=== PATIENT | female | born 1980 | race Caucasian/White ===

== ENCOUNTER 2024-08-26 16:12 | Emergency (ER) | payer OTHER, MEDICAID, SELFPAY ==
[2024-08-26 16:22] VITALS: BP 119/76; PULSE 76; RESP 16; TEMP 36.7; O2SAT 97; BMI 45.1
[2024-08-26 20:57] VITALS: BP 121/78; PULSE 70; RESP 18; O2SAT 98
--- NOTE | 2024-08-26 21:21 | USR_ITS ---
PROCEDURE INFORMATION: Exam: US Right Breast Limited; Cellulitis or Abscess Evaluation Exam date and time: 08/26/2024 10:18 PM Age: 43 years old Clinical indication: Breast pain; Prior surgery; Surgery date: 1-6 months; Surgery type: Patient said she had this area within her right breast drained April of 2024. ; Additional info: Mass vs. Abscess TECHNIQUE: Imaging protocol: Right breast ultrasound. Exam limited to the quadrant(s) of clinical concern. Exam focused on the evaluation of cellulitis or abscess. Exam is an emergent request and a non-BIRADS study. COMPARISON: No relevant prior studies available. FINDINGS: Breast/Soft tissues: There is a heterogeneous focus of fluid within the area of concern in the right breast communicating with the subcutaneous fat and measuring 3.6 x 1.3 cm in size. This is avascular. Other findings: BI-RADS category 2 benign findings. US/US breast RT limited* [id number] IMPRESSION: Findings most compatible with a right breast abscess. Drainage and specimen analysis is recommended.
--- NOTE | 2024-08-26 21:21 | ED_ITS ---
HPI - General Adult General: Chief complaint: General Medical Stated complaint: knot under right breast Time Seen by Provider: 08/26/24 21:06 History of Present Illness: Patient presents with concerns regarding a complex breast mass that has been previously evaluated. Patient reports the mass has been persistent and required previous drainage procedures. The mass is located under the right nipple. Tonight's presentation was prompted by increased symptoms including warmth to touch and nausea. Patient denies fever. Previous medical intervention included drainage attempts, with minimal output noted. Patient reports being referred to [facility] with an appointment scheduled for September 19. Previous provider who initially managed the condition has reportedly left practice. Associated symptoms: Deny chest pain, dyspnea or rash Related Data Previous Rx's Medication Instructions Recorded cephalexin 500 mg capsule 500 mg PO Q8H 7 days #21 caps 08/26/24 naproxen 500 mg tablet 500 mg PO Q12H PRN pain #30 tabs 08/26/24 Allergies Allergy/AdvReac Type Severity Reaction Status Date / Time No Known Allergies Allergy Verified 08/26/24 16:27 Review of Systems Card: Denies: chest pain Resp: Denies: dyspnea Skin/Breast: Reports: erythema, skin tenderness, skin swelling, non-healing lesions, lesions and breast mass; Denies: rash REPLACED BY [facility] Female Reproductive History: Date of last menstrual period: 08/12/24 Physical Exam Const: COMMON NORMALS: no acute distress, patient oriented x3 and no limitations Chest: CHEST: Yes Symmetrical chest wall rise Resp: COMMON NORMALS: normal respiratory effort Neuro: COMMON NORMALS: patient oriented x3 Skin: LESIONS: lesion noted (Firm non-fluctuant lesion from 11 oclock to 2 oclock just above the nipple) Tender to palpation Course ED course: Ultrasound did not reveal drainable fluid collection. Discussed the diagnostic uncertainty of this breast mass and recommended strongly that she keep her scheduled follow-up for evaluation in the meantime over concerns of possible underlying infection will cover with antibiotics and anti-inflammatories return precautions follow-up instructions discussed. Vital Signs: Vital signs: Vital Signs Temperature 98.0 F 08/26/24 16:22 Pulse Rate 70 08/26/24 20:57 Respiratory Rate 18 08/26/24 20:57 Blood Pressure 121/78 08/26/24 20:57 Pulse Oximetry 98 08/26/24 20:57 Oxygen Delivery Me thod Room Air 08/26/24 16:22 MDM - General Adult Medical Decision Making 43-year-old female with chronic breast mass or lesion possibly malignant presents with concerns of possible super infection with bacteria and/or abscess. Will give an injection of Rocephin and obtain an ultrasound to see if this is amendable to incision and drainage. XR interpretation done by ED provider, pending radiology final review Discharge Plan Discharge Patient Disposition: Home Clinical Impression: Breast mass in female Condition: Stable Prescriptions: New cephalexin 500 mg capsule 500 mg PO Q8H 7 Days Qty: 21 0RF naproxen 500 mg tablet 500 mg PO Q12H PRN (Reason: pain) Qty: 30 0RF Discharge Orders: Discharge ED (Routine); Ordered 08/26/24 Ordered By: Tomas Corado Discharge Diet: Usual diet Discharge Activity: Resume usual activity Patient Instructions: Opioid Safety, Pain Management Coding Level of Care Code ED Gang Mower Operator for Delaney Gant
[2024-08-26] MEDS: cefTRIAXone 1,000 MG in water for injection-sterile 2.1 ML 2.1 MG IM (21:40)
== END 2024-08-26 22:52 | disposition home or self-care (01) ==
PROVIDERS: Emergency Provider Family Medicine
DX: N63.10 Unspecified lump in the right breast, unspecified quadrant (principal)
CPT/HCPCS: 76642; 96372; 99284; J0696

== ENCOUNTER 2024-09-06 11:36 | Inpatient (IN) | payer MEDICAID, SELFPAY ==
[2024-09-06] VITALS (11 sets, daily range): BP systolic 105–143; BP diastolic 66–96; PULSE 59–78; RESP 16–19; TEMP 36.6–36.9; O2SAT 92–98; BMI 47.1; BMI 46.2
--- NOTE | 2024-09-06 12:50 | US_ITS ---
WS: [id number] ULTRASOUND RIGHT BREAST HISTORY: pain/swelling/r/o infection abscess COMPARISON: 08/26/2024 TECHNIQUE: 2-D and Doppler. There is a large complex heterogeneous but predominately cystic mass in the retroareolar RIGHT breast. Mass measures 4.6 x 5.2 x 2.7 cm with increased peripheral vascularity. This mass was also present on the prior examination of 08/26/2024 but is increasing in size. US/US breast RT limited* [id number] IMPRESSION: BI-RADS: 3- Probably Benign FOLLOW-UP: See Report Increasing size of the complex fluid collection in the RIGHT breast is most con sistent with a large abscess. Consider surgical debridement. Recommend follow-u p to resolution.
--- NOTE | 2024-09-06 14:00 | W.ED.SKABFB ---
HPI - Skin/Abscess/Foreign Bdy General: Chief complaint: Skin/Abscess/Foreign Body Stated complaint: Mass rt breast Time Seen by Provider: 09/06/24 13:44 Source: patient Mode of arrival: ambulatory Limitations: no limitations History of Present Illness: Patient is a 43-year-old female presents to ED today for a red, tender, and exquisitely painful right breast. Patient states she has been having ongoing issues since March. She was seen here in our emergency department approximately 2 weeks ago and was placed on antibiotics for concern for a possible abscess. There was also some possible concern for underlying malignancy. Patient states she has an appointment with a cancer facility later this month in [place]. She states she has never had a mammogram. She is very tearful due to the amount of discomfort she is in. No family history of breast cancer but states her mom and sister both have a history of ovarian cancer diagnosed at a young age. She has never had a mammogram. No biopsy/pathology has been completed yet. complaint: abscess/boil Onset (ago): day(s) Tetanus up to date: yes Location: chest Severity: severe Severity scale (1-10): 10 Pain Consistency: constant Relieving factors: none Exacerbating factors: none Context: none Associated symptoms: Deny chills or fever(s) Treatments prior to arrival: none Related Data Previous Rx's ?Medication ?Instructions ?Recorded naproxen 500 mg tablet 500 mg PO Q12H PRN pain #30 tabs 08/26/24 Allergies Allergy/AdvReac Type Severity Reaction Status Date / Time No Known Allergies Allergy Verified 09/06/24 12:26 Review of Systems Const: Denies: fever(s), chills, body aches, fatigue or malaise Card: Denies: chest pain Resp: Denies: dyspnea Skin/Breast: Reports: erythema (R breast) Neuro: Denies: headache(s) Physical Exam Const: COMMON NORMALS: patient oriented x3, no limitations, alert and well nourished GENERAL APPEARANCE: cooperative and in distress (tearful due to fear and pain) NUTRITIONAL APPEARANCE: obese Chest: NIPPLE/AREOLA: No nipple discharge OTHER: pt has significant tenderness, induration, erythema, warmth mainly affecting the lower outer portion of her R breast; there is dimpling to her areola/nipple from underlying induration; no nipple discharge Resp: COMMON NORMALS: normal respiratory effort and clear to auscultation bilaterally AUSCULTATION: clear to auscultation bilaterally Cardio: COMMON NORMALS: regular rate and regular rhythm RATE: regular rate RHYTHM: regular rhythm Neuro: COMMON NORMALS: patient oriented x3 SENSORIUM/ORIENTATION: Yes alert Course Consultations: Consultation #1: Dr. Woods-recommending CT imaging with contrast; will admit to his service Vital Signs: Vital signs: Vital Signs Temperature 97.9 F 09/06/24 12:21 Pulse Rate 70 09/06/24 16:08 Respiratory Rate 16 09/06/24 16:08 Blood Pressure 131/93 09/06/24 16:08 Pulse Oximetry 98 09/06/24 16:08 Oxygen Delivery Me thod Room Air 09/06/24 12:21 MDM - Skin/Abscess/Foreign Bdy Medicial Decision Making Patient here with a worsening exquisitely tender and erythematous right breast. She was seen here a few weeks ago and placed on antibiotics with no response. Breast US was initially obtained from triage. Read was that she had an increasing size of the complex fluid collection most consistent with a large abscess with recommendations for consideration for surgical debridement. I had spoken to Dr. Woods who recommended CT imaging. CT scan showing a large mass in her anterior right breast with significant extension and overlying skin inflammation. DDx includes inflammatory breast cancer, Paget's, granulomatous mastitis, abscess. Patient clinically is in significant amounts of discomfort. Dr. Woods graciously is willing to consult on patient admit her to his services. He will discuss potential surgical options. He has requested IV antibiotics, prn pain/nausea meds, and making her NPO at midnight in preparation for surgery. Dr. Uribe aware of patient and will place admit orders. Medical Records I reviewed the patient's medical records. Lab Data I reviewed the patient's lab results. 09/06/24 14:13 09/06/24 14:13 Radiology Impressions Breast Ultrasound 09/06/24 12:50 IMPRESSION: BI-RADS: 3- Probably Benign FOLLOW-UP: See Report Increasing size of the complex fluid collection in the RIGHT breast is most consistent with a large abscess. Consider surgical debridement. Recommend follow-up to resolution. Chest CT 09/06/24 14:10 IMPRESSION: 1. Large mass in the anterior RIGHT breast with extension to involve the subareolar complex and skin. Mass measures 6.7 x 3.0 cm. With the extension of the overlying skin inflammatory breast cancer should also be considered along with Paget's disease. 2. The central retroareolar collection may be an abscess. Differential includes granulomatous mastitis, Paget's disease and inflammatory breast cancer. 3. Significant skin involvement. Punch biopsy of the skin may be of benefit if surgical debridement is not performed. 4. Mildly reactive RIGHT axillary lymph node measures 2.4 cm. Notified BILL Mills at 09/06/2024 3:02 PM. Laboratory Results WBC 14.71 10^3/uL (3.29-11.43) H 09/06/24 14:13 RBC 4.66 10^6/uL (3.85-5.65) 09/06/24 14:13 Hgb 12.40 g/dL (11.27-16.99) 09/06/24 14:13 Hct 39.3 % (36-47) 09/06/24 14:13 MCV 84.3 fl (85-98) L 09/06/24 14:13 MCH 26.6 pg (27-33) L 09/06/24 14:13 MCHC 31.6 g/dL (30-55) 09/06/24 14:13 RDW 13.0 % (12.1-15.1) 09/06/24 14:13 Plt Count 292 10^3/cmm (157-399) 09/06/24 14:13 MPV 10.9 fL (7.4-10.4) H 09/06/24 14:13 Neut % (Auto) 72.7 % 09/06/24 14:13 Lymph % (Auto) 20.9 % 09/06/24 14:13 Dickens % (Auto) 4.3 % 09/06/24 14:13 Eos % (Auto) 1.5 % 09/06/24 14:13 Baso % (Auto) 0.3 % 09/06/24 14:13 Neut # (Auto) 10.68 10^3/uL (1.8-7.7) H 09/06/24 14:13 Lymph # (Auto) 3.1 10^3/uL (0.8-4.8) 09/06/24 14:13 Dickens # (Auto) 0.6 10^3/uL (0.2-0.9) 09/06/24 14:13 Eos # (Auto) 0.2 10^3/uL (0.0-0.8) 09/06/24 14:13 Baso # (Auto) 0.1 10^3/uL (0.0-0.1) 09/06/24 14:13 Nucleated RBC % (auto) 0 % 09/06/24 14:13 Nucleated RBCs # 0.0 /100WBC 09/06/24 14:13 Sodium 135 mmol/L (136-145) L 09/06/24 14:13 Potassium 4.3 mmol/L (3.5-5.1) 09/06/24 14:13 Chloride 101 mmol/L (98-107) 09/06/24 14:13 Carbon Dioxide 25 mmol/L (22-29) 09/06/24 14:13 Anion Gap 13.3 (5-19) 09/06/24 14:13 BUN 9 mg/dL (6-20) 09/06/24 14:13 Creatinine 0.7 mg/dL (0.5-0.9) 09/06/24 14:13 GFR Calculation 91.3 mL/min (90-130) 09/06/24 14:13 Glucose 103 mg/dL (65-115) 09/06/24 14:13 Calculated Osmolality 279 mOsm/kg (285-295) L 09/06/24 14:13 Calcium 8.9 mg/dL (8.5-10.5) 09/06/24 14:13 Total Bilirubin 0.2 mg/dL (0.15-1.2) 09/06/24 14:13 AST 8 U/L (0-32) 09/06/24 14:13 ALT 7 U/L (0-33) 09/06/24 14:13 Alkaline Phosphatase 60 U/L (35-105) 09/06/24 14:13 Total Protein 7.0 g/dL (6.6-8.7) 09/06/24 14:13 Albumin 3.6 g/dL (3.5-5.2) 09/06/24 14:13 Globulin 3.4 g/dL (1.3-4.6) 09/06/24 14:13 All radiology interpretation(s) finalized by discharge Discharge Plan Discharge Patient Disposition: Admitted As Inpatient Clinical Impression: Large mass of right breast Condition: Stable Prescriptions: No Action naproxen 500 mg tablet 500 mg PO Q12H PRN (Reason: pain) Qty: 30 0RF Print Language: [place] Coding Level of Care Code ED Pulmonary Disease Specialist for Delaney Gant
[2024-09-06] MEDS: ondansetron 2 mg/ML SDV 2 mL 4 MG IVP ×3 (14:10→20:56)
--- NOTE | 2024-09-06 14:10 | CT_ITS ---
WS: [id number] CT chest w con* [id number] HISTORY: focus R breast abscess TECHNIQUE: CT is protocol to include the RIGHT breast and axilla only. Axial imaging performed through the RIGHT breast. Coronal and sagittal reformats are submitted. All CT scans at [facility] use at least one of these dose optimization techniques: automated exposure control; mA and/or kV adjustment per patient size (includes targeted exams where dose is matched to clinical indication); or iterative reconstruction. CONTRAST: Omnipaque 350; 100 mL IV. DLP: 590.18 mGy.cm COMPARISON: Prior ultrasound 09/06/2024 and 08/26/2024 Soft tissue mass is reidentified within the central, retroareolar RIGHT breast. This is a low-attenuation mass with peripheral enhancement and soft tissue extension. Mass measures 6.7 x 3.0 cm and extends over a length of 5.6 cm. Mass extends to the anterior breast and the subareolar complex. There is marked subcutaneous thickening measuring 6 mm. No air within the cavity. No additional abscess. There is a reactive mildly hyperemic lymph node. The largest lymph node is 2.4 cm. Visualized RIGHT lung is clear. CT/CT chest w con* [id number] IMPRESSION: 1. Large mass in the anterior RIGHT breast with extension to involve the subar eolar complex and skin. Mass measures 6.7 x 3.0 cm. With the extension of the o verlying skin inflammatory breast cancer should also be considered along with P aget's disease. 2. The central retroareolar collection may be an abscess. Differential include s granulomatous mastitis, Paget's disease and inflammatory breast cancer. 3. Significant skin involvement. Punch biopsy of the skin may be of benefit if surgical debridement is not performed. 4. Mildly reactive RIGHT axillary lymph node measures 2.4 cm. Notified BILL Mills at 09/06/2024 3:02 PM.
[2024-09-06] MEDS: morphine 4 mg/mL SDV 1 mL IVP ×3 (14:11→20:57)
[2024-09-06 14:24] LABS: Basophils # 0.1 10^3/uL (0.0-0.1); Basophils % 0.3 %; Eosinophils # 0.2 10^3/uL (0.0-0.8); Eosinophils % 1.5 %; Hematocrit 39.3 % (36-47); Lymphocytes # 3.1 10^3/uL (0.8-4.8); Lymphocytes % 20.9 %; Mean Corpuscular HGB Conc 31.6 g/dL (30-55); Mean Corpuscular Hemoglobin 26.6 pg (27-33); Mean Corpuscular Volume 84.3 fl (85-98); Mean Platelet Volume 10.9 fL (7.4-10.4); Monocytes # 0.6 10^3/uL (0.2-0.9); Monocytes % 4.3 %; Neutrophils # 10.68 10^3/uL (1.8-7.7); Neutrophils % 72.7 %; Nucleated Red Blood Cells % 0 %; Platelet Count 292 10^3/cmm (157-399); Red Blood Count 4.66 10^6/uL (3.85-5.65); White Blood Count 14.71 10^3/uL (3.29-11.43)
[2024-09-06] MEDS: iohexol 350 mg/mL 500 mL Btl (per mL) IV (14:35)
[2024-09-06 14:40] LABS: Alanine Aminotransferase 7 U/L (0-33); Albumin Level 3.6 g/dL (3.5-5.2); Alkaline Phosphatase 60 U/L (35-105); Anion Gap 13.3 (5-19); Aspartate Amino Transferase 8 U/L (0-32); Blood Urea Nitrogen 9 mg/dL (6-20); Calcium 8.9 mg/dL (8.5-10.5); Carbon Dioxide 25 mmol/L (22-29); Chloride 101 mmol/L (98-107); Creatinine Clr Calc Pharmacy 154.7338; Globulin 3.4 g/dL (1.3-4.6); Glomerular Filtration Rate 91.3 mL/min (90-130); Glucose 103 mg/dL (65-115); Osmolality Calculated 279 mOsm/kg (285-295); Potassium 4.3 mmol/L (3.5-5.1); Sodium 135 mmol/L (136-145); Total Bilirubin 0.2 mg/dL (0.15-1.2)
[2024-09-06] MEDS: piperacillin-tazobactam 3.375 GM in sodium chloride 0.9% (plus) 50 ML IV (16:20)
[2024-09-06] MEDS: vancomycin 1,500 MG/300 ML PIGGYBACK 200 MG IV (16:39)
--- NOTE | 2024-09-06 17:36 | PHA.VACGOAL ---
Vancomycin Goal - Goal Vancomycin Goal:: 10-15 mg/L Vancomycin Indication:: Other - Therapy Current therapy:: Pip/Tazo Day of therpy:: Day []of [] . Actual body weight (kg): 310 lb - Data Labs: WBC 14.71 10^3/uL (3.29-11.43) H 09/06/24 14:13 RBC 4.66 10^6/uL (3.85-5.65) 09/06/24 14:13 Hgb 12.40 g/dL (11.27-16.99) 09/06/24 14:13 Hct 39.3 % (36-47) 09/06/24 14:13 MCV 84.3 fl (85-98) L 09/06/24 14:13 MCH 26.6 pg (27-33) L 09/06/24 14:13 MCHC 31.6 g/dL (30-55) 09/06/24 14:13 RDW 13.0 % (12.1-15.1) 09/06/24 14:13 Sodium 135 mmol/L (136-145) L 09/06/24 14:13 Potassium 4.3 mmol/L (3.5-5.1) 09/06/24 14:13 Chloride 101 mmol/L (98-107) 09/06/24 14:13 Carbon Dioxide 25 mmol/L (22-29) 09/06/24 14:13 Anion Gap 13.3 (5-19) 09/06/24 14:13 BUN 9 mg/dL (6-20) 09/06/24 14:13 Creatinine 0.7 mg/dL (0.5-0.9) 09/06/24 14:13 GFR Calculation 91.3 mL/min (90-130) 09/06/24 14:13 Last dialysis session:: N/A Treatment plan:: new consult Regimen:: MAINTENANCE DOSE OF 1500 MG Q8H PER DOSING PROTOCOL Follow up:: WILL CONTINUE TO MONITOR AND FOLLOW UP DAILY
[2024-09-06] MEDS: lidocaine 2% viscous 15 ML, aluminum-mag hydrox-simethicon 30 ML, sucralfate oral liq 1 GM PO (20:56)
[2024-09-07] VITALS (11 sets, daily range): BP systolic 105–130; BP diastolic 63–80; PULSE 67–80; RESP 16–20; TEMP 36.7–37; O2SAT 90–96
[2024-09-07] MEDS: vancomycin 1,500 MG/300 ML PIGGYBACK 200 MG IV (00:07)
[2024-09-07] MEDS: morphine 4 mg/mL SDV 1 mL IVP ×4 (01:46→20:44)
[2024-09-07] MEDS: piperacillin-tazobactam 3.375 GM in sodium chloride 0.9% (plus) 50 ML IV ×3 (02:38→18:16)
[2024-09-07] MEDS: vancomycin 1,500 MG/300 ML PIGGYBACK 150 MG IV ×2 (07:23→16:22)
[2024-09-07] MEDS: ondansetron 2 mg/ML SDV 2 mL 4 MG IVP (07:23)
--- NOTE | 2024-09-07 08:58 | PC.CHAP ---
Pastoral Care Encounter/Spiritual Assessment Type of Contact [] Declined supervisor machine workers visit [] Patient/Family/Request visit [] Outpatient visit [] Follow-up visit [] Physician referral [] Code/Alert [] Routine visit [] Staff referral [] Actively dying [x] Patient sleeping [] Family support [] [] Out of room [] Palliative care [] [] Receiving care in room [] Pre-surgical visit [] Trauma [] Long length of stay [] ICU visit [] Other: Relational/Emotional Strength [] Patient feels connected with others/family/visitors/staff [] Distress [] Loneliness/isolation [] Abandonment Spirituality of Patient [] Person of Radha [] Attends Restoration of their Radha [] Believes in Prayer [] Reads Bible or Protestant materials [] There are Spiritual issues to be addressed Electronic Field Service Engineer Interventions [] Prayer [] Active listening [] Non-anxious presence [] Spiritual/emotional support [] Crisis/trauma care [] Spiritual counseling [] Bereavement support [] Provided bereavement packet [] Provided Bible/devotional materials [] Provided toy/stuffed animal, coloring book to patient or family member [] Provided Communion [] Anointing/Davilla [] Salvation [] Completed spiritual assessment [] Other: Impact on Illness or Injury [] Angry [] Fearful [] Anxious [] Often cries [] Exhaustion [] Unable to work [] Unable to attend anabaptism [] Unable to walk/stand [] Unable to read [] Unable to drive [] Unable to eat/drink [] Unable to sleep [] Unable to be with family [] Patient intubated [] Other: Summary Time spent with patient
--- NOTE | 2024-09-07 14:06 | P.HP_ITS ---
Providers/Chief Complaint 2 Admitting Physician: Clay Woods DO Chief Complaint: Mass rt breast History of Present Illness Chandu Morin is a 43 year old female, with an extensive family history of ovarian cancer in her mother and sister, presented to the hospital with worsening pain erythema and swelling of the right breast. She reports that this has been present since March. She has an appointment in 2 weeks with a breast surgeon in [place]. Her pain just became exquisite and she had to go to the emergency room. She has a 3 children and last breast-fed a year and a half ago. She denies any nipple discharge. She has never had a mammogram. Denies any family history of breast cancer. Right breast ultrasound performed in the ER was read as abscess. A CT of the right breast/chest showed a large mass with extensive skin/nipple involvement and a 2.4 cm lymph node in the right axilla. Review of Systems 2 General: Reports: 10 or more systems reviewed and unremarkable except in HPI and below Medications/Allergies Home Medications ?Medication ?Instructions ?Recorded ?Confirmed ?Last Taken ?Type naproxen 500 mg tablet 500 mg PO Q12H PRN pain #30 tabs 08/26/24 09/06/24 Unknown Rx Allergies Allergy/AdvReac Type Severity Reaction Status Date / Time No Known Allergies Allergy Verified 09/06/24 12:26 PFSH Acute 2 Female Reproductive History: Date of last menstrual period: 09/04/24 Vitals/I&O/Wt Last Vital Signs Temp 98.7 F 09/08/24 07:12 Pulse 64 09/08/24 07:12 Resp 15 09/08/24 07:12 BP 126/75 09/08/24 07:12 Pulse Ox 91 09/08/24 07:12 O2 Del Method Room Air 09/08/24 07:12 09/07/24 09/08/24 09/08/24 22:59 06:59 14:59 Intake Total 470 / 820 300 / 1120 350 / 350 Output Total 600 / 900 700 / 700 Balance 470 / 520 -300 / 220 -350 / -350 Weight last 48 hrs Weight 301 lb 12.8 oz Weight 302 lb Weight 303 lb 14.4 oz Weight 310 lb Physical Exam 2 Narrative: General : Patient is well developed , no acute distress, oriented x3 Head : Normal cephalic, a-traumatic. Ears : Pinnae and external canal are normal. Hearing is normal. Eyes : PERRLA, Sclera and injection are normal. No conjunctival discharge. Nose : Mucous membranes are without erythema. Throat : buccal mucosa is normal, gums are without significant recession or hypertrophy. Lungs : Equal chest rise bilaterally, no use of accessory muscles, trachea is midline. Cor : Rate and rhythm are normal. Breast: Right breast has extensive erythema surrounding the areola and is very tender to the touch with induration and an underlying palpable mass that is nonmobile. There is also a nonmobile large lymph node in the right axilla. No other masses felt bilaterally Abdomen : Soft, ND, NT, no g/r/m Extremities : No edema, no cyanosis or clubbing, dorsalis pedis pulses are present bilaterally, non-tender to palpation of calves. Upper extremities are normal bilaterally. Back : non-tender to palpation, no CVA tenderness. Neuro : CN II - XII intact, Upper and lower extremities have equal and full strength Data 09/06/24 14:13 09/06/24 14:13 Micro: Microbiology 09/06/24 16:11 Blood Culture - Preliminary Blood NEGATIVE TO DATE 09/06/24 16:14 Blood Culture - Preliminary Blood NEGATIVE TO DATE A&P Assessment and plan (1) Large mass of right breast: Plan Presentation is concerning for an inflammatory breast cancer. Also included in the differential is Paget's disease, granulomatous mastitis, mastitis versus other infection. Skin biopsy x 2 performed at the edge of the areola by myself with 4 mm punch biopsy after consent obtained. Procedure performed with patient's nurse, Karon, in the room. I will send her tomorrow for core needle biopsy of breast mass and right axillary mass by interventional radiology Patient likely will be discharged home tomorrow after the biopsies and I will order a CT of the chest abdomen pelvis along with a bone scan. She also needs bilateral mammograms and an oncology referral PDMP PDMP Reviewed: Not Reviewed Attestations 2 Medical Necessity Statement*: Patient requires at least 1 night in the hospital for further workup of this large painful right breast mass to include biopsies tomorrow. She also requires acute pain control Coding Level of Care Code Acute Code for Chg Fwd Diagnoses Large mass of right breast N63.10
--- NOTE | 2024-09-07 14:19 | PC.NURSE ---
Punch skin bx performed at bedside by Dr. Woods. 2 small areas of skin removed from right breast. Pt tolerated well. Area covered with gauze and paper tape.
--- NOTE | 2024-09-07 16:05 | PM.ACPR ---
Procedure/Consent Procedure Narrative: Preoperative diagnosis: Right breast mass with cellulitis and induration of skin and areola Postop diagnosis: Same Procedure performed: 4 mm skin punch biopsy x 2 (performed in 2 separate areas) Specimens: 4 mm punch biopsies x 2 Surgeon: Dr. Clay Woods DO Estimated blood loss: 1 mL Right breast was inspected prepped and draped in usual sterile fashion. Timeout was performed prior to the procedure. Patient's nurse, Karon was present in the room for the entire procedure. 2% lidocaine with epinephrine was used to anesthetize the skin at the areola on the right breast. A 4 mm punch biopsy was used to take a punch biopsy at the edge of the areola just right of the superior aspect. A second punch biopsy was performed just inferior to the 9 o'clock position of the right areola. Specimens were placed into a specimen jar and sent to pathology on formalin. Sterile bandages were applied. Patient tolerated procedure well.
[2024-09-07 16:14] LABS: Vancomycin Trough 15.5 ug/mL (10-15)
--- NOTE | 2024-09-07 16:22 | PC.NURSE ---
vanc trough 15.5. Per Chucho in pharmacy, no change to dose.
[2024-09-08] VITALS (7 sets, daily range): BP systolic 106–126; BP diastolic 65–76; PULSE 64–68; RESP 15–18; TEMP 36.8–37.1; O2SAT 91–92
[2024-09-08] MEDS: vancomycin 1,500 MG/300 ML PIGGYBACK 150 MG IV ×2 (00:54→06:55)
[2024-09-08] MEDS: morphine 4 mg/mL SDV 1 mL IVP ×3 (01:59→13:29)
[2024-09-08] MEDS: piperacillin-tazobactam 3.375 GM in sodium chloride 0.9% (plus) 50 ML IV ×2 (03:21→09:01)
[2024-09-08] MEDS: ondansetron 2 mg/ML SDV 2 mL 4 MG IVP ×2 (06:54→13:29)
--- NOTE | 2024-09-08 13:00 | US_ITS ---
WS: [id number] ULTRASOUND-GUIDED RIGHT BREAST ASPIRATION AND LYMPH NODE BIOPSY CLINICAL INFORMATION: RIGHT BREAST MASS FINDINGS: The procedure including risks, benefits, and complications were discussed with the patient who agreed to proceed. Using sterile technique patient was prepped and draped in the usual sterile fashion. After 1% lidocaine utilizing real-time ultrasound guidance approximately 70cc of purulent fluid was drained from the subareolar RIGHT breast abscess. Only a small amount of residual fluid/edema remain. Next approximately 5 core samples were obtained of the enlarged RIGHT axillary lymph node. No clip was placed. Pathology demonstrates RIGHT axillary lymph node core samples were negative for malignancy. Aspirated fluid demonstrates acutely inflamed cystic contents or abscess. No atypia dysplasia or malignancy identified. US/US bx lymph breast/ax [id number] IMPRESSION: 1. Uncomplicated ultrasound-guided RIGHT breast and axillary biopsy 2. RIGHT axillary core samples are negative for malignancy. 3. Aspirated fluid contents from suspected abscess demonstrate no evidence of malignancy or atypia. 4. Recommend follow-up abscess fluid collection to resolution. Recommend ultra sound follow-up in 4 to 6 weeks after antibiotic therapy, if surgical drainage not performed in the interim. DENSITY: The breasts are heterogeneously dense, which may obscure small masses. BI-RADS: 2 - Benign FOLLOW UP: See Report
--- NOTE | 2024-09-08 13:00 | US_ITS ---
WS: [id number] ULTRASOUND-GUIDED RIGHT BREAST ASPIRATION AND LYMPH NODE BIOPSY CLINICAL INFORMATION: RIGHT BREAST MASS FINDINGS: The procedure including risks, benefits, and complications were discussed with the patient who agreed to proceed. Using sterile technique patient was prepped and draped in the usual sterile fashion. After 1% lidocaine utilizing real-time ultrasound guidance approximately 70cc of purulent fluid was drained from the subareolar RIGHT breast abscess. Only a small amount of residual fluid/edema remain. Next approximately 5 core samples were obtained of the enlarged RIGHT axillary lymph node. No clip was placed. Pathology demonstrates RIGHT axillary lymph node core samples were negative for malignancy. Aspirated fluid demonstrates acutely inflamed cystic contents or abscess. No atypia dysplasia or malignancy identified. US/[place] [id number] IMPRESSION: 1. Uncomplicated ultrasound-guided RIGHT breast and axillary biopsy 2. RIGHT axillary core samples are negative for malignancy. 3. Aspirated fluid contents from suspected abscess demonstrate no evidence of malignancy or atypia. 4. Recommend follow-up abscess fluid collection to resolution. Recommend ultra sound follow-up in 4 to 6 weeks after antibiotic therapy, if surgical drainage not performed in the interim. DENSITY: The breasts are heterogeneously dense, which may obscure small masses. BI-RADS: 2 - Benign FOLLOW UP: See Report
--- NOTE | 2024-09-08 15:55 | PM.DCS ---
Discharge Providers Date of Admission: 09/06/24 17:08 Date of Discharge: September 08, 2024 Attending Provider at Admission: Clay Woods DO Attending Provider at Discharge: Clay Woods DO Diagnoses at Discharge Discharge Diagnosis (1) Large mass of right breast: Status: Acute Reason for Visit Reason for Visit: Mass rt breast Hospital Course Hospital Course This is a very pleasant 43-year-old female who presented to the hospital with worsening cellulitis and induration of the right breast. The symptoms have been progressing since March,. She is placed on antibiotics and underwent 4 mm punch biopsies of her areola. She also received ultrasound-guided core needle biopsies of the right breast mass and right axillary node. She had a breast ultrasound and breast CT on the right as well. She was discharged home in stable condition. She has plans for short-term follow-up in my office for further workup. I explained the seriousness situation and her need to make her appointment Physical Exam Narrative: General : Patient is well developed , no acute distress, oriented x3 Head : Normal cephalic, a-traumatic. Ears : Pinnae and external canal are normal. Hearing is normal. Eyes : PERRLA, Sclera and injection are normal. No conjunctival discharge. Nose : Mucous membranes are without erythema. Throat : buccal mucosa is normal, gums are without significant recession or hypertrophy. Lungs : Equal chest rise bilaterally, no use of accessory muscles, trachea is midline. Cor : Rate and rhythm are normal. Breast: Right breast has a large retroareolar and multiple mass with induration and cellulitis, there is also a large fixed right axillary node Abdomen : Soft, ND, NT, no g/r/m Extremities : No edema, no cyanosis or clubbing, dorsalis pedis pulses are present bilaterally, non-tender to palpation of calves. Upper extremities are normal bilaterally. Back : non-tender to palpation, no CVA tenderness. Neuro : CN II - XII intact, Upper and lower extremities have equal and full strength Discharge Data Studies Completed and Pending Completed Studies During Hospitalization Category Date Time Status CT chest w con* [id number] Stat Cat Scan 09/06/24 14:10 Completed US breast RT limited* [id number] Stat Ultrasound 09/06/24 12:50 Completed Pending at discharge Category Date Time Status Blood Culture Stat Lab 09/06/24 16:11 Results Body Fluid Culture Routine Lab 09/08/24 13:32 Received Creatinine Routine Lab 09/08/24 15:30 Ordered Pathology: Surgical [PTH] Routine Pth 09/08/24 13:13 Received US bx lymph breast/ax [id number] Routine Ultrasound 09/08/24 13:00 [place] [id number] Routine Ultrasound 09/08/24 13:00 Taken Radiology Impressions Breast Ultrasound 09/06/24 12:50 IMPRESSION: BI-RADS: 3- Probably Benign FOLLOW-UP: See Report Increasing size of the complex fluid collection in the RIGHT breast is most consistent with a large abscess. Consider surgical debridement. Recommend follow-up to resolution. Chest CT 09/06/24 14:10 IMPRESSION: 1. Large mass in the anterior RIGHT breast with extension to involve the subareolar complex and skin. Mass measures 6.7 x 3.0 cm. With the extension of the overlying skin inflammatory breast cancer should also be considered along with Paget's disease. 2. The central retroareolar collection may be an abscess. Differential includes granulomatous mastitis, Paget's disease and inflammatory breast cancer. 3. Significant skin involvement. Punch biopsy of the skin may be of benefit if surgical debridement is not performed. 4. Mildly reactive RIGHT axillary lymph node measures 2.4 cm. Notified BILL Mills at 09/06/2024 3:02 PM. Laboratory Results WBC 14.71 10^3/uL (3.29-11.43) H 09/06/24 14:13 RBC 4.66 10^6/uL (3.85-5.65) 09/06/24 14:13 Hgb 12.40 g/dL (11.27-16.99) 09/06/24 14:13 Hct 39.3 % (36-47) 09/06/24 14:13 MCV 84.3 fl (85-98) L 09/06/24 14:13 MCH 26.6 pg (27-33) L 09/06/24 14:13 MCHC 31.6 g/dL (30-55) 09/06/24 14:13 RDW 13.0 % (12.1-15.1) 09/06/24 14:13 Plt Count 292 10^3/cmm (157-399) 09/06/24 14:13 MPV 10.9 fL (7.4-10.4) H 09/06/24 14:13 Neut % (Auto) 72.7 % 09/06/24 14:13 Lymph % (Auto) 20.9 % 09/06/24 14:13 [place] % (Auto) 4.3 % 09/06/24 14:13 Eos % (Auto) 1.5 % 09/06/24 14:13 Baso % (Auto) 0.3 % 09/06/24 14:13 Neut # (Auto) 10.68 10^3/uL (1.8-7.7) H 09/06/24 14:13 Lymph # (Auto) 3.1 10^3/uL (0.8-4.8) 09/06/24 14:13 [place] # (Auto) 0.6 10^3/uL (0.2-0.9) 09/06/24 14:13 Eos # (Auto) 0.2 10^3/uL (0.0-0.8) 09/06/24 14:13 Baso # (Auto) 0.1 10^3/uL (0.0-0.1) 09/06/24 14:13 Nucleated RBC % (auto) 0 % 09/06/24 14:13 Nucleated RBCs # 0.0 /100WBC 09/06/24 14:13 Sodium 135 mmol/L (136-145) L 09/06/24 14:13 Potassium 4.3 mmol/L (3.5-5.1) 09/06/24 14:13 Chloride 101 mmol/L (98-107) 09/06/24 14:13 Carbon Dioxide 25 mmol/L (22-29) 09/06/24 14:13 Anion Gap 13.3 (5-19) 09/06/24 14:13 BUN 9 mg/dL (6-20) 09/06/24 14:13 Creatinine 0.7 mg/dL (0.5-0.9) 09/06/24 14:13 GFR Calculation 91.3 mL/min (90-130) 09/06/24 14:13 Glucose 103 mg/dL (65-115) 09/06/24 14:13 Calculated Osmolality 279 mOsm/kg (285-295) L 09/06/24 14:13 Calcium 8.9 mg/dL (8.5-10.5) 09/06/24 14:13 Total Bilirubin 0.2 mg/dL (0.15-1.2) 09/06/24 14:13 AST 8 U/L (0-32) 09/06/24 14:13 ALT 7 U/L (0-33) 09/06/24 14:13 Alkaline Phosphatase 60 U/L (35-105) 09/06/24 14:13 Total Protein 7.0 g/dL (6.6-8.7) 09/06/24 14:13 Albumin 3.6 g/dL (3.5-5.2) 09/06/24 14:13 Globulin 3.4 g/dL (1.3-4.6) 09/06/24 14:13 Vancomycin Trough 15.5 ug/mL (10-15) H 09/07/24 15:39 Procedures Performed Right areolar skin biopsy x 2 Ultrasound-guided core needle biopsy of right breast and right axilla Vitals Last Vital Signs Temp 98.7 F 09/08/24 07:12 Pulse 64 09/08/24 07:12 Resp 18 09/08/24 13:29 BP 126/75 09/08/24 07:12 Pulse Ox 91 09/08/24 07:12 O2 Del Method Room Air 09/08/24 07:12 Discharge Plan Discharge Patient Disposition: Home Condition: Stable Prescriptions: New sulfamethoxazole-trimethoprim [Bactrim DS] 800-160 mg tablet 1 tab PO BID 10 Days Qty: 20 0RF hydrocodone-acetaminophen 7.5-325 mg tablet 1 tab PO Q6H PRN (Reason: pain) Qty: 28 0RF docusate sodium [Colace] 100 mg capsule 100 mg PO BID Qty: 20 0RF Held naproxen 500 mg tablet 500 mg PO Q12H PRN (Reason: pain) Qty: 30 0RF Hold Instructions: Resume on 09/10/24. Discharge Orders: Discharge Order (Routine); Ordered 09/08/24 Ordered By: Clay Woods Referrals: Clay Woods DO [Physician] - 09/09/24 8:00 am Discharge Diet: Advance as tolerated Discharge Activity: Resume usual activity Patient Instructions: Opioid Safety Activity Restrictions/Additional Instructions: NONE Discharge Attestations Time Spent in Discharge Care*: less than 30 min Quality Metrics Clinical Quality Measures [ No reported AMI, CVA or VTE this stay] Coding Level of Care Code Acute Code for Chg Fwd Diagnoses Large mass of right breast N63.10
[2024-09-08 16:43] LABS: Creatinine Clr Calc Pharmacy 152.2995; Glomerular Filtration Rate 91.3 mL/min (90-130)
--- NOTE | 2024-09-08 17:09 | PC.NURSE ---
Discharge instructions provided to pt and her family. No questions or concerns at this time.
== END 2024-09-08 16:40 | disposition home or self-care (01) | DRG 600 ==
LOC: ER 16:29 → MEDSURG 17:09
PROVIDERS: Admitting Provider Surgery; Emergency Provider Physician Assistant; Visit Provider Surgery
DX: N61.0 Mastitis without abscess (principal); Z68.42 Body mass index [BMI] 45.0-49.9, adult; N63.41 Unspecified lump in right breast, subareolar; Z80.41 Family history of malignant neoplasm of ovary; E66.09 Other obesity due to excess calories
CPT/HCPCS: 19083; 36415; 38505; 71260; 76642; 76942; 80053; 80202; 82565; 85025; 87040; 87070; 87075; 87205; 88173; 88304; 88305; 96365; 96367; 96375; 96376; 99285; J2270; J2405; J2543; J3370

== ENCOUNTER → 2024-09-09 08:11 | Outpatient (BNVA) | payer MEDICAID, SELFPAY | PROVIDERS: Visit Provider Surgery | DX: N63.10 Unspecified lump in the right breast, unspecified quadrant (principal) | CPT/HCPCS: 99204; 99214 ==

== ENCOUNTER → 2024-09-15 13:53 | Outpatient (BNVA) | payer MEDICAID, SELFPAY | PROVIDERS: Visit Provider Surgery | DX: Z09 Encounter for follow-up examination after completed treatment for conditions other than malignant neoplasm (principal); N63.10 Unspecified lump in the right breast, unspecified quadrant | CPT/HCPCS: 99204 ==

== ENCOUNTER 2024-09-27 09:03 | Day surgery (SDC) | payer MEDICAID, SELFPAY ==
[2024-09-27] VITALS (12 sets, daily range): BP systolic 117–167; BP diastolic 66–91; PULSE 52–69; RESP 12–16; TEMP 36.2–36.6; O2SAT 94–99; BMI 45.9
--- NOTE | 2024-09-27 09:52 | P.HPUD_ITS ---
Surgery/Procedure H&P Update DATE OF PROCEDURE: September 27, 2024 DATE H&P PERFORMED: 09/15/24 H&P UPDATE INFORMATION: I have reviewed H&P completed within last 30 days, I have examined patient prior to procedure and No changes to prior documentation PLANNED PROCEDURE: Operation Date: 09/27/24 10:40 Proposed Procedures p Excision of Breast Mass Breast Lumpectomy 13510, N63.10(Right) - Clay zavala DO
[2024-09-27 09:55] LABS: OR HCG Qualitative Urine Negative (Negative)
[2024-09-27] MEDS: sodium chloride 0.9% 1,000 ML 30 ML IV (10:14)
--- NOTE | 2024-09-27 10:33 | ANES.PREANE2 ---
Pre-Anesthetic Assessment Height/Weight: Height 1.73 m Weight 136.985 kg Temp Pulse Resp BP Pulse Ox O2 Del Method 97.6 F 68 16 167/91 96 Room Air 09/27/24 09:44 09/27/24 09:44 09/27/24 09:44 09/27/24 09:44 09/27/24 09:44 09/27/24 10:18 Preop Diagnosis: breast mass Operation Date: 09/27/24 10:40 Proposed Procedures p Excision of Breast Mass Breast Lumpectomy 82331, N63.10(Right) - Clay Woods DO Familial anesthetic complications: none Was Beta Alberto taken within 24 hours: N/A Was Clonidine taken within 24 hours: N/A Last intake: Intake Last Liquid Date 09/26/24 Last Liquid Time 23:30 Last Solid Date 09/26/24 Last Solid Time 22:30 Social Tobacco and No alcohol 1.5 PPD pack(s) per day Exam alert, oriented x 3, clear to auscultation bilaterally and regular rate & rhythm Airway Submandibular: within normal limits Cervical ROM: within normal limits Mallampati: Class II Dentition: full (Missing some teeth) History/ROS No significant history except as noted and No significant complaints Pulmonary Asthma, Chronic Obstructive Pulmonary Disease and Sleep Apnea CV/HEM None reported None reported Hepatic None reported GI None reported Metabolic Morbid Obesity [facility] None reported Neuropsych Anxiety and Depression Anesthetic Plan ASA status: 3 Anesthesia: General Risk of > 500 ml blood loss (7ml/kg in children): No Medications/Allergies Home Medications ?Medication ?Instructions ?Recorded ?Confirmed ?Last Taken ?Type naproxen 500 mg tablet 500 mg PO Q12H PRN pain #30 tabs 08/26/24 09/26/24 Unknown Rx Held on 09/08/24. Instructions: Resume on 09/10/24. docusate sodium 100 mg capsule 100 mg PO BID #20 caps 09/08/24 09/26/24 Unknown Rx (Colace) ondansetron 8 mg disintegrating 8 mg PO Q8H PRN nausea and 09/09/24 09/26/24 Unknown Rx tablet vomiting #20 tabs hydrocodone 7.5 mg-acetaminophen 1 tab PO Q6H PRN pain 7 days #28 09/15/24 09/26/24 09/26/24 Rx 325 mg tablet tabs sulfamethoxazole 400 1 tab PO DAILY 09/26/24 09/26/24 09/26/24 History mg-trimethoprim 80 mg tablet (Bactrim) Allergies Allergy/AdvReac Type Severity Reaction Status Date / Time No Known Allergies Allergy Verified 09/26/24 10:04 Current Medications Generic Name Dose Route Start Last Admin Trade Name Freq PRN Reason Stop Dose Admin Sodium Chloride 1,000 mls @ 30 mls/hr 09/27/24 07:45 09/27/24 10:14 Sodium Chloride 0.9% IV 09/28/24 07:44 30 mls/hr .Q24H HAYDEE Administration PFSH Anesthesia Social History Smoking and tobacco/nicotine status: never used tobacco/nicotine Female Reproductive History Date of last menstrual period: 09/26/24 Data Anesthesia Cardiac Studies: No Data to Display
[2024-09-27] MEDS: ceFAZolin 3,000 MG in sodium chloride 0.9% (plus) 100 ML 200 MG IV (11:48)
[2024-09-27] MEDS: lidocaine-epi 2% PF 1:200,000 20 mL SDV XX (11:52)
--- NOTE | 2024-09-27 12:12 | PM.OP ---
Operative Report Date of procedure: September 27, 2024 Pre-op diagnosis: Right breast mass Post-op diagnosis: same Procedure done: Right breast lumpectomy Implants: Ana Specimens removed/disposition: Right breast lumpectomy: Skin barrera anterior, short stitch barrera superior and long stitch barrera lateral Surgeon: Clay Woods DO Anesthesia: General and Local Estimated blood loss (mL): 20 Complications: none apparent Brief History: This very pleasant 43-year-old female who originally presented to hospital with a painful and swollen right breast. She is found to have a right breast mass as well as an enlarged right axillary node. She underwent multiple biopsies of the right axillary node in the breast mass by interventional radiology and no malignancy was identified. This began 6 months ago and has been a chronic problem causing her pain. She desired lumpectomy. The risks and benefits were explained and documented. Procedure: The patient was brought back into the operating room. She was placed on the OR table in the supine position. The right breast and axilla were inspected prepped and draped in usual sterile fashion. The timeout was performed. All present were in agreement. A 7 cm incision was made in a semicircular fashion around the right half of the areola. There was a small pimple in the 9 o'clock position of the edge of the areola. This was ellipsed out with the specimen. Dissection was carried down with electrocautery. Electrocautery was used to carve out a lumpectomy specimen. Abscess cavity was identified immediately behind the nipple and included in the specimen. Specimen was taken out en bloc. Skin marked anterior. Long stitch barrera lateral and short stitch barrera superior. Hemostasis was achieved with electrocautery and Ana. Specimen was then passed off to be put in formalin and sent to pathology. The dermis was approximated with 3-0 Vicryl. The skin was closed with 4-0 Vicryl in a subcuticular and running fashion. Dermabond was applied. Patient tolerated the procedure well.
[2024-09-27] MEDS: ondansetron 2 mg/ML SDV 2 mL 4 MG IVP (12:45)
[2024-09-27] MEDS: HYDROcodone-acetaminophen 10-325 mg Tablet 1 TAB PO (13:27)
--- NOTE | 2024-09-27 16:25 | ANE.PACU2 ---
Inpatient post-anesthesia follow up: Airway intact: Yes Vital signs: Temperature 97.8 F Pulse Rate 58 Respiratory Rate 16 Blood Pressure 123/66 Pulse Oximetry 97 Oxygen Delivery Me thod Room Air Oxygen Flow Rate Fraction of Inspir ed Oxygen Hydration adequate: Yes Nausea and vomiting: No Pain level: 1 Mental status: Baseline
== END 2024-09-27 16:25 | disposition home or self-care (01) ==
PROVIDERS: Anesthesiology; Visit Provider Surgery
PROC: (CPT 19120; principal; 2024-09-27 10:30)
DX: D24.1 Benign neoplasm of right breast (principal); J44.89 Other specified chronic obstructive pulmonary disease; F17.210 Nicotine dependence, cigarettes, uncomplicated; K08.409 Partial loss of teeth, unspecified cause, unspecified class; G47.30 Sleep apnea, unspecified; E66.01 Morbid (severe) obesity due to excess calories; Z68.42 Body mass index [BMI] 45.0-49.9, adult; F41.9 Anxiety disorder, unspecified; F32.A Depression, unspecified; F41.8 Other specified anxiety disorders; Z79.899 Other long term (current) drug therapy
CPT/HCPCS: 19301; 81025; 88305; J0690; J1100; J1885; J2250; J2405; J2704; J3010; J3490; J7030

== ENCOUNTER 2024-10-10 08:51 | Oncology outpatient (recurring) (ONCR) | payer MEDICAID, SELFPAY | END 2024-10-31 23:59 | disposition home or self-care (01) | PROVIDERS: Visit Provider Internal Medicine Medical Oncology | DX: N63.10 Unspecified lump in the right breast, unspecified quadrant (principal); L03.90 Cellulitis, unspecified; E22.1 Hyperprolactinemia | CPT/HCPCS: 99205; 99213 ==

== ENCOUNTER → 2024-10-17 14:33 | Outpatient (BNVA) | payer MEDICAID, SELFPAY | PROVIDERS: Visit Provider Student in an Organized Health Care Education/Training Program | DX: N64.52 Nipple discharge (principal); N63.10 Unspecified lump in the right breast, unspecified quadrant | CPT/HCPCS: 99024 ==